=== PATIENT | female | born 1980 | race Hispanic/Latino ===

== ENCOUNTER 2021-06-24 07:05 | Emergency (ER) | payer BC ==
[~2021-06-24] VITALS: Ht 157.5 cm; Wt 67.1 kg
[2021-06-24 07:08] VITALS: BP 141/89
[2021-06-24 08:48] VITALS: BP 154/98
[2021-06-24] MEDS ORDERED: METH-812 PO (08:52)
[2021-06-24] MEDS ORDERED: NAPR-1180 PO (08:52)
[2021-06-24] MEDS ORDERED: KETOROLAC 60 MG VIAL (30MG/ML) IM SCH (09:41)
[2021-06-24] MEDS ORDERED: CYCLOBENZAPRINE HCL 10 MG TABLET ONE (09:46)
[2021-06-24 10:07] VITALS: BP 124/74
== END 2021-06-24 10:15 | disposition home or self-care (01) ==
LOC: EDH 07:05
DX: M43.6 Torticollis (principal); Z88.0 Allergy status to penicillin
CPT/HCPCS: 96372; 99284; J1885

== ENCOUNTER 2023-09-11 09:09 | Emergency (ER) | payer OTHER, BC ==
[~2023-09-11] VITALS: Ht 154.9 cm; Wt 71.7 kg
[~2023-09-11 09:09] MED LIST: METH-812 PO; NAPR-1180 PO
[2023-09-11] MEDS ORDERED: KETOROLAC 60 MG VIAL (30MG/ML) IM ONE (09:19)
[2023-09-11] MEDS ORDERED: KETOROLAC 30MG VIAL (30MG/ML) IVP ONE (09:30)
[2023-09-11 10:34] VITALS: BP 140/83; PULSE 80; RESP 17; O2SAT 99
== END 2023-09-11 11:11 | disposition home or self-care (01) ==
LOC: EDH 09:09
DX: S16.1XXA Strain of muscle, fascia and tendon at neck level, initial encounter (principal); S20.212A Contusion of left front wall of thorax, initial encounter; S80.02XA Contusion of left knee, initial encounter; Z79.899 Other long term (current) drug therapy; Z90.49 Acquired absence of other specified parts of digestive tract; Z98.890 Other specified postprocedural states; Z88.0 Allergy status to penicillin; V29.888A Rider (driver) (passenger) of other motorcycle injured in other specified transport accidents, initial encounter; Y93.I9 Activity, other involving external motion; Y92.488 Other paved roadways as the place of occurrence of the external cause; Y99.8 Other external cause status
CPT/HCPCS: 99285; 70450; 96374; 71045; 73562; 73030; 72125; 93005; J1885